=== PATIENT | male | born 1955 | race Caucasian/White ===

== ENCOUNTER 2020-11-11 16:18 | Inpatient (IN) | payer MEDICARE ==
[~2020-11-11] VITALS: Ht 182.9 cm; Wt 92.5 kg
[2020-11-11 16:57] LABS: HEMOGLOBIN 9.2 gm/dl (14.0-17.5); RED BLOOD COUNT 3.14 M/UL (4.20-5.50)
[2020-11-11 16:59] LABS: WHITE BLOOD COUNT 1.4 K/UL (4.5-11.0)
[2020-11-11 17:22] LABS: BUN/CREATININE RATIO 13 (0-10)
[2020-11-12 05:11] LABS: HEMOGLOBIN 8.4 gm/dl (14.0-17.5)
[2020-11-12 05:21] LABS: RED BLOOD COUNT 2.82 M/UL (4.20-5.50); WHITE BLOOD COUNT 0.9 K/UL (4.5-11.0)
[2020-11-12 05:42] LABS: BUN/CREATININE RATIO 15 (0-10)
[2020-11-12] MEDS ORDERED: FLOMAX 0.4 MG0.4 MG PO (08:50)
[2020-11-12] MEDS ORDERED: ONDANSETRON ODT4 MG PO (08:52)
[2020-11-12] MEDS ORDERED: PROCHLORPERAZINE5 MG PO (08:52)
[2020-11-12] MEDS ORDERED: ESCITALOPRAM OX10 MG PO (08:52)
[2020-11-12] MEDS ORDERED: HYDROXYZINE PAM25 MG PO (08:52)
[2020-11-12] MEDS ORDERED: LEVOTHYROXINE125 MCG PO (08:53)
[2020-11-12] MEDS ORDERED: HYDROCODON-ACE1 EAC6 PO (08:53)
[2020-11-12] MEDS ORDERED: PROTONIX 40 MG40 M1 PO (08:53)
[2020-11-12] MEDS ORDERED: FISH OIL 1,0001 EACH PO (08:54)
[2020-11-12] MEDS ORDERED: VITAMIN D325 MCG PO (08:54)
[2020-11-12] MEDS ORDERED: ASPIRIN EC81 MG PO (09:00)
[2020-11-12] MEDS ORDERED: NICOTINE PATCH1 EAC5 TD (09:01)
[2020-11-12] MEDS ORDERED: COMPAZINE5 MG PO (09:04)
[2020-11-12 10:48] LABS: ACINETOBACTER BAUMANNII Not Detected (Negative); CANDIDA ALBICANS Not Detected (Negative); CANDIDA KRUSEI Not Detected (Negative); CANDIDA TROPICALIS Not Detected (Negative); ENTEROCOCCUS Not Detected (Negative); ESCHERICHIA COLI Not Detected (Negative); HAEMOPHILUS INFLUENZAE Not Detected (Negative); KLEBSIELLA OXYTOCA Not Detected (Negative); KLEBSIELLA PNEUMONIAE Not Detected (Negative); KPC-CARBAPENEM-RESISTANCE GENE Not Detected (Negative); PROTEUS Not Detected (Negative); SERRATIA MARCESANS Not Detected (Negative); STAPHYLOCOCCUS Not Detected (Negative); STAPHYLOCOCCUS AUREUS Not Detected (Negative); STREP AGALACTIAE (GROUP B) Not Detected (Negative); STREP PYOGENES (GROUP A) Not Detected (Negative); STREPTOCOCCUS Not Detected (Negative); mecA (METHICILLIN RESIST GENE Not Detected (Negative); vanA/B (VANCOMYCIN RESIST GENE Not Detected (Negative)
[2020-11-12 12:22] LABS: PSEUDOMONAS AERUGINOSA DETECTED (Negative)
[2020-11-13 05:08] LABS: BUN/CREATININE RATIO 11 (0-10)
--- NOTE | 2020-11-13 19:17 | NUR ---
PER DR. ALVES, PT FLUIDS MAY BE DC'ED FROM TIME TO TIME TO ALLOW PT TO AMBULATE IN THE ROOM. PT IS A HIGH FALL RISK AND SHOULD BE MONITORED WHEN TRANSITIONING AROUND THE ROOM. WILL CONTINUE TO MONITOR PT AND PUT MEASURES IN PLACE TO AVOID FALLS.
[2020-11-14 04:19] LABS: HEMOGLOBIN 8.7 gm/dl (14.0-17.5); RED BLOOD COUNT 2.98 M/UL (4.20-5.50)
[2020-11-14 04:31] LABS: WHITE BLOOD COUNT 1.4 K/UL (4.5-11.0)
[2020-11-14 04:36] LABS: BUN/CREATININE RATIO 10 (0-10)
[2020-11-15 04:24] LABS: HEMOGLOBIN 9.3 gm/dl (14.0-17.5); RED BLOOD COUNT 3.22 M/UL (4.20-5.50)
[2020-11-15 04:26] LABS: BUN/CREATININE RATIO 5 (0-10)
[2020-11-15 04:34] LABS: WHITE BLOOD COUNT 3.7 K/UL (4.5-11.0)
[2020-11-16 05:36] LABS: HEMOGLOBIN 9.9 gm/dl (14.0-17.5); RED BLOOD COUNT 3.45 M/UL (4.20-5.50)
[2020-11-16 05:39] LABS: WHITE BLOOD COUNT 7.5 K/UL (4.5-11.0)
[2020-11-16 06:04] LABS: BUN/CREATININE RATIO 7 (0-10)
== END 2020-11-18 18:40 | disposition home or self-care (01) | DRG 314 ==
LOC: ER1 16:18 → CDU 18:53 → M/S 18:53
PROVIDERS: Family Medicine; Internal Medicine; ADMIT Internal Medicine
PROC: 02PYX3Z Removal of Infusion Device from Great Vessel, External Approach (ICD-10-PCS; principal; 2020-11-18)
PROC: 02HV33Z Insertion of Infusion Device into Superior Vena Cava, Percutaneous Approach (ICD-10-PCS; 2020-11-18)
DX: T80.211A Bloodstream infection due to central venous catheter, initial encounter (principal); A41.52 Sepsis due to Pseudomonas; J18.9 Pneumonia, unspecified organism; D61.810 Antineoplastic chemotherapy induced pancytopenia; C85.90 Non-Hodgkin lymphoma, unspecified, unspecified site; E87.1 Hypo-osmolality and hyponatremia; F11.20 Opioid dependence, uncomplicated; I25.810 Atherosclerosis of coronary artery bypass graft(s) without angina pectoris; Z20.822 Contact with and (suspected) exposure to COVID-19; G89.29 Other chronic pain; M51.36 Other intervertebral disc degeneration, lumbar region; F41.9 Anxiety disorder, unspecified; Y84.0 Cardiac catheterization as the cause of abnormal reaction of the patient, or of later complication, without mention of misadventure at the time of the procedure; N40.0 Benign prostatic hyperplasia without lower urinary tract symptoms; F17.210 Nicotine dependence, cigarettes, uncomplicated; T45.1X5A Adverse effect of antineoplastic and immunosuppressive drugs, initial encounter; E03.9 Hypothyroidism, unspecified; Z95.1 Presence of aortocoronary bypass graft; Z93.0 Tracheostomy status; Z86.73 Personal history of transient ischemic attack (TIA), and cerebral infarction without residual deficits; Z79.82 Long term (current) use of aspirin; Z87.01 Personal history of pneumonia (recurrent)
CPT/HCPCS: 0240U; 36415; 36600; 51701; 71045; 71250; 80048; 80053; 80202; 81001; 82550; 82553; 82803; 83605; 83735; 84132; 84484; 85025; 85610; 87040; 87077; 87150; 87186; 92526; 92610; 93005; 96374; 99284; J1442; J2185; J2405; J2543; J3370; J7070; Q0177